=== PATIENT | male | born 1995 | race Caucasian/White ===

== ENCOUNTER 2017-02-13 12:53 | Emergency (ER) | payer MEDICAID ==
[~2017-02-13] VITALS: Ht 170.2 cm; Wt 82.5 kg
[2017-02-13 12:55] VITALS: BP 133/80
== END 2017-02-13 13:38 | disposition home or self-care (01) ==
LOC: ED 13:20
DX: K01.1 Impacted teeth (principal); K08.89 Other specified disorders of teeth and supporting structures
CPT/HCPCS: 99283